=== PATIENT | female | born 1965 | race Native Hawaiian/Other Pacific Islander ===

== ENCOUNTER 2017-06-10 08:04 | Outpatient (CLI) | payer BC | END 2017-06-10 19:04 | disposition home or self-care (01) | LOC: MAMMO 08:04 | DX: Z12.31 Encounter for screening mammogram for malignant neoplasm of breast (principal) | CPT/HCPCS: G0202-TC ==

== ENCOUNTER 2018-06-23 08:04 | Outpatient (CLI) | payer BC | END 2018-06-23 23:23 | disposition home or self-care (01) | LOC: MAMMO 08:04 | DX: Z12.31 Encounter for screening mammogram for malignant neoplasm of breast (principal); Z13.820 Encounter for screening for osteoporosis ==

== ENCOUNTER 2019-07-27 13:22 | Outpatient (CLI) | payer BC | END 2019-07-27 19:48 | disposition home or self-care (01) | LOC: MAMMO 13:22 | DX: Z12.31 Encounter for screening mammogram for malignant neoplasm of breast (principal) ==

== ENCOUNTER 2019-08-03 12:42 | Outpatient (CLI) | payer BC | END 2019-08-03 21:30 | disposition home or self-care (01) | LOC: MAMMO 12:42 | DX: R92.2 Inconclusive mammogram (principal) ==

== ENCOUNTER 2020-08-01 11:30 | Outpatient (CLI) | payer BC | END 2020-08-01 22:26 | disposition home or self-care (01) | LOC: MAMMO 11:30 | DX: Z12.31 Encounter for screening mammogram for malignant neoplasm of breast (principal); Z13.820 Encounter for screening for osteoporosis ==

== ENCOUNTER 2021-08-14 10:32 | Outpatient (CLI) | payer BC | END 2021-08-14 21:03 | disposition home or self-care (01) | LOC: MAMMO 10:32 | PROVIDERS: ATTEND Obstetrics & Gynecology | DX: Z12.31 Encounter for screening mammogram for malignant neoplasm of breast (principal) ==

== ENCOUNTER 2021-12-25 08:37 | Outpatient (CLI) | payer BC | END 2021-12-25 21:35 | disposition home or self-care (01) | LOC: RAD 08:37 | PROVIDERS: ATTEND Nurse Practitioner Family | DX: M05.79 Rheumatoid arthritis with rheumatoid factor of multiple sites without organ or systems involvement (principal); M19.041 Primary osteoarthritis, right hand; M19.042 Primary osteoarthritis, left hand; Z79.899 Other long term (current) drug therapy ==

== ENCOUNTER 2022-07-05 11:47 | Outpatient (CLI) | payer BC | END 2022-07-05 20:21 | disposition home or self-care (01) | LOC: RAD 11:47 | PROVIDERS: ATTEND Physician Assistant | DX: M25.512 Pain in left shoulder (principal) ==

== ENCOUNTER 2022-08-24 09:00 | Outpatient (CLI) | payer BC | END 2022-08-24 19:14 | disposition home or self-care (01) | LOC: MAMMO 09:00 | PROVIDERS: ATTEND Obstetrics & Gynecology | DX: Z12.31 Encounter for screening mammogram for malignant neoplasm of breast (principal) ==

== ENCOUNTER 2023-03-31 11:13 | Outpatient (CLI) | payer BC | END 2023-03-31 19:45 | disposition home or self-care (01) | LOC: MRI 11:13 | PROVIDERS: ATTEND Orthopaedic Surgery | DX: M67.812 Other specified disorders of synovium, left shoulder (principal) ==